=== PATIENT | male | born 1980 | race Caucasian/White ===

== ENCOUNTER 2024-04-21 19:00 | Emergency (ER) | payer MEDICAID ==
[~2024-04-21] VITALS: Ht 167.6 cm; Wt 73.0 kg
[2024-04-21 19:08] VITALS: TEMP 98.7
[2024-04-21 22:37] LABS: BASOPHILS % (AUTO) 0.5 % (0.0-2.0); EOSINOPHILS % (AUTO) 0.6 % (1.0-6.0); HEMATOCRIT 29.2 % (41-53); HEMOGLOBIN 9.2 g/dL (13.5-17.5); LYMPHOCYTES # (AUTO) 2.1 K/uL (1.0-4.8); LYMPHOCYTES % (AUTO) 18.5 % (22.0-44.0); MEAN CORPUSCULAR HEMOGLOBIN 20.6 pg (26.0-34.0); MEAN CORPUSCULAR HGB CONC 31.6 G/dL (31.0-37.0); MEAN CORPUSCULAR VOLUME 65 fL (80-100); MONOCYTES # (AUTO) 0.9 K/uL (0.1-1.0); MONOCYTES % (AUTO) 7.8 % (2.0-9.0); NEUTROPHILS # (AUTO) 8.3 K/uL (1.8-7.7); NEUTROPHILS % (AUTO) 72.6 % (40.0-70.0); RED BLOOD CELL COUNT(AUTO) 4.46 MIL/uL (4.50-5.90); RED CELL DISTRIBUTION WIDTH 23.6 % (11.5-14.5); WHITE BLOOD COUNT (AUTO) 11.4 K/uL (4.5-11.0)
[2024-04-21 22:38] LABS: ANION GAP 4 mmol/L (8-16); CALCIUM, TOTAL 8.2 mg/dL (8.8-10.5); CARBON DIOXIDE 30 mmol/L (22-29); CHLORIDE 101 mmol/L (98-107); CREATININE 0.58 mg/dL (0.60-1.30); GLOMERULAR FILTR. RATE CALC > 60 mL/min (>60); GLUCOSE,RANDOM 100 mg/dL (70-110); POTASSIUM 4.1 mmol/L (3.5-5.1); SODIUM SERUM 135 mmol/L (136-145); UREA NITROGEN, BLOOD 7 mg/dL (7-18)
[2024-04-21 22:42] LABS: PLATELET COUNT (AUTO) 994 K/uL (150-450)
[2024-04-21 22:44] LABS: RBC MORPHOLOGY COMMENT ABNORMAL RBC MORPH
[2024-04-21 22:50] VITALS: BP 124/66; PULSE 110; RESP 16; O2SAT 98
[2024-04-21] MEDS: MetroNIDAZOLE 250 MG TABLET PO ONE (23:59)
[2024-04-21] MEDS: CEPHALEXIN MONOHYDRATE 500 MG CAPSULE PO ONE (23:59)
[2024-04-22] MEDS ORDERED: METR500 PO (00:12)
[2024-04-22] MEDS ORDERED: CEPH-558 PO (00:12)
== END 2024-04-22 00:37 | disposition home or self-care (01) ==
LOC: EMS 19:00
DX: R10.9 Unspecified abdominal pain (principal); Z90.49 Acquired absence of other specified parts of digestive tract
CPT/HCPCS: 71045; 80048; 85025; 99284; 36415-L1; 36415-TC

== ENCOUNTER 2024-05-06 15:11 | Emergency (ER) | payer MEDICAID ==
[~2024-05-06] VITALS: Ht 170.2 cm; Wt 63.6 kg
[~2024-05-06 15:11] MED LIST: CEPH-558 PO; METR500 PO
[2024-05-06 15:21] VITALS: BP 116/81; PULSE 112; RESP 18; TEMP 98.6; O2SAT 99
== END 2024-05-06 16:12 | disposition home or self-care (01) ==
LOC: EMS 15:11
DX: T81.30XA Disruption of wound, unspecified, initial encounter (principal); Z93.3 Colostomy status; Z90.49 Acquired absence of other specified parts of digestive tract
CPT/HCPCS: 99281; Z7502